=== PATIENT | female | born 1945 | race Caucasian/White ===

== ENCOUNTER 2019-08-29 10:47 | Inpatient (IN) | payer OTHER ==
[~2019-08-29] VITALS: Ht 167.6 cm; Wt 56.2 kg
[2019-08-29 10:50] VITALS: BP 101/70
[2019-08-29] MEDS ORDERED: OMEPRAZOLE40 MG PO (10:55)
[2019-08-29] MEDS ORDERED: ARIMIDEX1 MG PO (10:56)
[2019-08-29] MEDS ORDERED: LOPERAMIDE 2 MG2 M1 PO (10:56)
[2019-08-29] MEDS ORDERED: ALEVE220 M1 PO (10:57)
[2019-08-29 11:15] LABS: HEMATOCRIT 44.7 % (37.0-47.0); HEMOGLOBIN 15.8 gm/dL (12.0-15.0); MCH 33.5 pg (26.0-34.0); MCHC 35.2 g/dL (28.0-37.0); MCV 95.2 fL (80.0-100.0); MPV 7.9 fl. (7.2-11.1); NUCLEATED RBCS 0 /100WBC; PLATELET COUNT* 442 thou/uL (150-400); RDW-CV 13.9 % (10.5-14.5); WBC 11.3 thou/uL (4.0-11.0)
[2019-08-29 11:25] LABS: CALCIUM 7.7 mg/dL (8.5-10.1); CREATININE 1.8 mg/dL (0.6-1.3); POTASSIUM 4.5 mmol/L (3.5-5.1)
[2019-08-29 11:32] LABS: ALBUMIN 2.9 g/dL (3.4-5.0); TOTAL BILIRUBIN 0.6 mg/dL (<0.1-1.0); TOTAL PROTEIN 6.5 g/dL (6.4-8.2)
[2019-08-29 11:48] LABS: ABSOLUTE LYMPHOCYTES 0.6 thou/uL (0.8-5.3); ABSOLUTE MONOCYTES 0.7 thou/uL (0.0-1.2); ABSOLUTE NEUTROPHILS 10.1 thou/uL (1.6-8.1); PLATELET ESTIMATE ADEQUATE
[2019-08-29 12:05] LABS: URINE BLOOD NEGATIVE (Negative); URINE CLARITY CLEAR; URINE COLOR YELLOW; URINE GLUCOSE-RANDOM NEGATIVE (Negative); URINE KETONES NEGATIVE (Negative); URINE LEUKOCYTES-REFLEX NEGATIVE (Negative); URINE NITRITE-REFLEX NEGATIVE (Negative); URINE PROTEIN NEGATIVE (Negative); URINE SPECIFIC GRAVITY >= 1.030 (1.005-1.030)
[2019-08-29 12:08] LABS: ICTOTEST (BILI CONFIRMATORY) Negative (Negative); URINE BILIRUBIN 1+ (Negative)
[2019-08-29 16:07] VITALS: BP 100/63
[2019-08-29 17:47] VITALS: BP 108/65
[2019-08-29 20:00] VITALS: BP 100/61
[2019-08-29 21:22] LABS: CREATININE 1.8 mg/dL (0.6-1.3); POTASSIUM 4.2 mmol/L (3.5-5.1)
[2019-08-30 00:12] VITALS: BP 103/60
[2019-08-30 04:02] LABS: HEMOGLOBIN 15.1 gm/dL (12.0-15.0); MCH 33.4 pg (26.0-34.0); MCV 95.3 fL (80.0-100.0); RBC 4.51 mil/uL (4.20-5.00); RDW-CV 14.1 % (10.5-14.5); WBC 10.9 thou/uL (4.0-11.0)
[2019-08-30 04:20] LABS: ALBUMIN 2.6 g/dL (3.4-5.0); CALCIUM 6.8 mg/dL (8.5-10.1); CREATININE 1.7 mg/dL (0.6-1.3); MAGNESIUM 1.5 mg/dL (1.8-2.4); POTASSIUM 3.8 mmol/L (3.5-5.1); TOTAL BILIRUBIN 0.6 mg/dL (<0.1-1.0); TOTAL PROTEIN 5.7 g/dL (6.4-8.2)
[2019-08-30 04:28] VITALS: BP 91/56
--- NOTE | 2019-08-30 05:42 | NUR ---
ASSUMED CARE OF PT AFTER REPORT AT 1930. PT A&OX4. VSS. PHYSICAL ASSESSMENT COMPLETED AND CHARTED. PT ON RA. PT TRACING SR/ST ON TELE. PT UP WITH 1 ASSIST. MAINTAINED NGT TO LOW-INERMITTENT SUCTION. MAINTAINED ON NPO. PT DENIES ANY PAIN. FALL PRECAUTIONS IN PLACE. CALL LIGHT WITHIN REACH.
[2019-08-30 08:00] VITALS: BP 93/57
--- NOTE | 2019-08-30 09:23 | EKG ---
[place] [address] ELECTROCARDIOGRAM REPORT Name: JENAKAMILLAFINESSE Room: [address] ADM IN [facility].#: [id number] Admission: 08/29/19 Attend Phys: Yolanda Locke, Discharge: Date of : 41 Date of Service: 08/29/19 1109 Report #: [id number] THIS REPORT FOR: //name// [facility] ED Test Date: 2019-08-29 Test Time: 11:09:40 Pat Name: FINESSE CONNER Department: Room: [facility] Gender: F Water Server: WILL : 1945 Requested By: Gisel Harrison Order Number: [id number] MD: Giovanny Duran Measurements Intervals [place] Rate: 113 P: 51 MD: 107 QRS: 40 QRSD: 84 T: 51 QT: 318 QTc: 436 Interpretive Statements Sinus tachycardia Probable left atrial enlargement No previous ECG available for comparison Electronically Signed On 08-30-2019 9:22:44 CDT by Giovanny Duran [email or web address] <ELECTRONICALLY SIGNED> By: Giovanny Duran MD, FAC 08/30/19 0922 1109 1109 Giovanny Duran MD, [facility] /EPI
--- NOTE | 2019-08-30 11:43 | NUR ---
ASSUMED PT CARE AT 0730. PT RESTING IN BED WITH NG TUBE TO RT. NARE HOOKED UP TO INTERMITTENT SUCTION. BROWN/RED FLUID NOTED IN SUCTION CANNISTER. PT HAS NO C/O PAIN OR NAUSEA. PT IS SCHEDULED FOR SMALL BOWEL FOLLOW THROUGH, DID DRINK SOME JUICE BEFORE PROCEDURE. DIET UPDATED TO NPO. TRACING ST ON THE WEIGHT LOSS CENTRE MANAGER, 95% ON RA, PT HAD ULTRASOUND OF ABD THIS MORNING, REFER TO RESULTS. PT GOAL FOR TODAY IS REMAIN FREE FROM PAIN AND NAUSEA AND REPLACE MAGNESIUM AND GI AND SURGERY CONSULT IN PLACE. AM ASSESSMENT CHARTED, MEDS PER MAR. PT REPOSITIONS SELF, HOURLY ROUNDING OBSERVED, BED IN LOW POSITION, CALL LIGHT W/IN REACH, WILL CONTINUE POC.
--- NOTE | 2019-08-30 13:54 | NUR ---
CM spoke with Pt's dtr via phone, Pt out of the room in surgery. Pt normally resides at home alone, A&O. Per dtr, Pt had been independent prior to a SBO in March, per dtr GI assumed that everything has resolved but Pt continued to get progressively weaker through the months. Pt had a colonoscopy in July, after that Pt was extremely weak, dtr had to start assisting with bathing/grooming and cleaning. Pt has a wc but does not use it. No hx of HH or SNF. Goal is home at [place], but dtr understands that Pt may need more at [facility]. CM following.
[2019-08-30 17:20] VITALS: BP 113/61
--- NOTE | 2019-08-30 18:04 | NUR ---
PT BACK FROM PACU AT APPROXIMATELY 1720. REPORT RECEIVED FROM JOVANA BOWDEN. PT HAD EXPLORATORY LAPAROTOMY. DRESSING NOTED TO MID ABDOMEN- COVERED AND ABDOMINAL BINDER IN PLACE. NGT REMAINS TO R NARE- BROWN RED LIQUID IN CANNISTER. CADENA CATHETER INSERTED IN PACU WITH CLEAR YELLOW URINE. LEFT CHEST SUBCLAVIAN CENTRAL LINE INSTERTED- LR CURRENTLY INFUSING AT 40ML/HR. PT ON 3L NC SAT 96%. PT DENIES ANY PAIN OR SHORTNESS OF BREATH AT THIS TIME. PT REMAINS NPO, ICE CHIPS SPARINGLY. PT PROGRESSING TOWARDS GOALS. MEDICATIONS PER MAR. PT REPOSITIONS SELF. HOURLY ROUNDING OBSERVED. BED IN LOW POSITION. BED ALARM IN PLACE. CALL LIGHT WITHIN REACH. WILL CONTINUE PLAN OF CARE.
[2019-08-31] VITALS (7 sets, daily range): BP systolic 93–115; BP diastolic 50–76
[2019-08-31 04:34] LABS: HEMATOCRIT 42.5 % (37.0-47.0); HEMOGLOBIN 14.3 gm/dL (12.0-15.0); MCH 32.7 pg (26.0-34.0); MCHC 33.7 g/dL (28.0-37.0); MPV 8.5 fl. (7.2-11.1); RBC 4.38 mil/uL (4.20-5.00); RDW-CV 14.1 % (10.5-14.5)
[2019-08-31 04:45] LABS: ALBUMIN 2.2 g/dL (3.4-5.0); CALCIUM 7.3 mg/dL (8.5-10.1); CREATININE 1.4 mg/dL (0.6-1.3); MAGNESIUM 2.4 mg/dL (1.8-2.4); PHOSPHORUS* 4.8 mg/dL (2.5-4.9); TOTAL BILIRUBIN 0.4 mg/dL (<0.1-1.0); TOTAL PROTEIN 5.2 g/dL (6.4-8.2)
--- NOTE | 2019-08-31 05:15 | NUR ---
PATIENT RESTED WELL ALL EVENING. NG AT LOW INTERMITTENT SUCTION, CADENA GOOD OUTPUT. SHE DID NOT GET UP ALL SHIFT. A&O X4, 3L O2. FLUIDS DISCONTINUED. NPO ALL SHIFT. ABDOMINAL BINDER IN PLACE, MEPALEX INTACT ON ABDOMEN SURGICAL SITE. NO REPORTS OF PAIN OR NAUSEA THIS SHIFT. OFFERED ICE PACK. PLAN IS TO CONTINUE NG TUBE, FOLLOW LABS/XRAYS. WILL CONTINUE TO MONITOR.
[2019-08-31 07:07] LABS: HEPATITIS B SURFACE AG Negative (Negative)
--- NOTE | 2019-08-31 11:03 | NUR ---
ASSUMED CARE OF PT AT 0730. PT IS RESTING IN BED AND HAS NO C/O PAIN OR NAUSEA. POTASSIUM BEING REPLACED PER ELECTROLYTE PROTOCOL. IV FLUIDS STARTED PER SURGERY. SUPPOSITORY WAS ALSO GIVEN PT HAS NOT HAD A BM IN T-2. PT BOWEL SOUNDS ARE HYPOACTIVE, DIET IS NPO WITH ICE CHIPS GIVEN SPARINGLY. TRACING ST ON HEART MONITOR, 94% ON 3L NC. PT GOAL IS TO MAINTAIN NO NAUSEA AND PAIN, HAVE A BM TODAY AND TO GET OUT OF BED AND WORK WITH THERAPY. AM ASSESSMENT CHARTED, HOURLY ROUNDING OBSERVED, FALL PRECAUTIONS IN PLACE, WILL CONTINUE POC.
--- NOTE | 2019-08-31 13:46 | NUR ---
WOUND NURSE: PATIENT SEEN TO ADDRESS WOUNDS IN SACROCOCCYGEAL AREA: COCCYX WOUND IS FULL THICKNESS MEASURING 1.4 X 0.8 X 0.3 CM, CONTAINS DARK RED, NONGRANULATING TISSUE IN THE WOUND BED. LEFT SACRUM CONTAINS 2 OPENINGS, IS PARTIAL THICKNESS AND MEASURING 1.5 X 0.5 X 0.2 CM. THESE CONTAIN PINK, NONGRANULATING TISSUE IN THE WOUND BED AND IS 50% SKIN IN THE MEASURED AREA. THERE IS SMALL AMOUNT OF SEROUS DRAINAGE NOTED FROM EACH OPEN WOUND. THERE IS A SUSPECTED DEEP TISSUE INJURY NOTED ON THE RIGHT SACRUM MEASURING 0.5 X 1.5 CM. THERE IS INTACT BROWNISH HYPERPIGMENTATION IN THE PERINEAL AREA. WOUNDS CLEANSED WITH SOAP AND WATER, RINSED, PATTED DRY. APPLIED SKIN PREP TO PERIWOUND, COVERED WITH AQUACEL AG UNDER EXUDERM UNDER SURESITE DRESSING. FELIX INSTUCTED ON IMPORTANCE OF FREQUENT SIDE TO SIDE REPOSITIONIN. STATES SHE UNDERSTANDS.
--- NOTE | 2019-08-31 17:31 | NUR ---
PT PROGRESSING TOWARDS GOALS, DENIES ANY NAUSEA OR PAIN THROUGHOUT SHIFT. PT WORKED WITH PT AND OT TODAY AND IS UP TO RECLINER, TOLERATED WELL. PT ON 3RD BAG OF POTASSIUM PER ELECTROLYTE PROTOCOL. PT IS NOW PASSING FLATUS AND HAD 225 GREEN/BROWN FLUID OUT FROM NGT. CONTINUES TO BE ON 3L NC AND TRACE SR/ST ON SANDFILL OPERATOR SURFACE. MEDS PER AUG, PT REPOSITIONED Q2H, HOURLY ROUNDING OBSERVED, BED IN LOW POSITION, CALL LIGHT W/IN REACH, WILL CONTINUE POC.
--- NOTE | 2019-08-31 21:59 | OP ---
[address] [address] OPERATIVE REPORT Name: FINESSE CONNER Room: [address] IN M.R.#: [id number] Admission: 08/29/19 Attend Phys: Yolanda Locke MD Discharge: Date of : 41 Report #: [id number] THIS REPORT FOR: //name// cc: GRISEL Patten family physician/PCP GRISEL - [facility] family physician/PCP ~ THIS REPORT FOR: //name// CC: [facility] physician/PCP Yolanda Locke DICTATED BY: Humberto Miranda DO DATE OF SERVICE: 08/30/2019 PREOPERATIVE DIAGNOSIS: Small-bowel obstruction. POSTOPERATIVE DIAGNOSIS: Small-bowel obstruction secondary to stricture. SURGEON: Jarrod Murphy DO. TRAVEL AGENCY MANAGER: Humberto Miranda, PGY5 OPERATION PERFORMED: 1. Exploratory laparotomy. 2. Release of small-bowel obstruction and small-bowel resection with primary anastomosis. ANESTHESIA: General and TAP blocks. ESTIMATED BLOOD LOSS: 5 mL. SPECIMENS REMOVED: Small bowel segment. COMPLICATIONS: None. FINDINGS: There is an obvious stricture in the mid small bowel with grossly distended proximal loops all the way noted to the ligament of Treitz. There was a decompressed colon. There was a large abdominal aortic aneurysm that was seen in the left upper quadrant near the ligament of Treitz. DESCRIPTION OF PROCEDURE: After appropriate consents were obtained, the patient was taken to the operating room, laid in supine position. She had SCDs placed on bilateral lower extremities and safety strap placed across her lap. She had all lines placed by Anesthesia. The anesthesiologist placed a left subclavian central line prior to starting the procedure, the nurse placed a Ybarra catheter. The patient was sedated and intubated by Anesthesia [place] [address] OPERATIVE REPORT Name: FINESSE CONNER Room: [address] IN M.R.#: [id number] Admission: 08/29/19 Attend Phys: Yolanda Locke MD Discharge: Date of : 41 Report #: [id number] was secured to the bed and both arms placed out. She had her abdomen exposed, prepped and draped in a standard sterile fashion. A timeout was performed to correctly identify the patient and procedure. She was given perioperative antibiotics at this time. We started by making a midline incision using #10 blade scalpel. This was carried from the infraumbilical region to just above the umbilicus. We carried this down again through the subcutaneous tissue using electrocautery. We the subcutaneous tissue bluntly and then able to encounter the anterior abdominal wall fascia. Once the fascia was encountered, it was incised using electrocautery and was grasped with 2 Greyson clamps, then entered the patient's peritoneal cavity. I grabbed the peritoneum between 2 Lorin clamps and then incising it sharply with Metzenbaum scissors, we entered the patient's abdomen using a finger and opened our fascial incision through the length of our skin incision. We were very careful not to injure any other structures underlying the fascia. We were able to remove the small bowel from the patient's abdomen and in doing so, there was a loop down in the pelvis that was removed and there was an obvious stricture near this region. This appeared to be an area in the mid small bowel with notable decompressed distal loops and significantly dilated proximal loops. The proximal loop ran all the way to the ligament of Treitz. Near the ligament of Treitz is a very large abdominal aortic aneurysm that was seen and palpated. We ran the entire small bowel twice all the way from the ligament of Treitz to ileocecal valve and again we noted only one obvious abnormality that was causing her obstruction and thid was the stricture in the mid small bowel. There did not appear to be any compromised blood flow and everything appeared to be healthy. We elected to resect a large segment just distal to the stricture and more proximally to an area that felt less edematous and appeared to be somewhat smaller. This was performed by using a hemostat to bluntly enter the mesentery and then, using 80-mm LAMONT stapler, we transected the bowel distally and then we used a LigaSure impact device in order to take the mesentery all the way up to our point of resection. We, at this point, made a small enterotomy in the proximal segment just distal to where we were going to transect the bowel. This enterotomy was used to decompress the proximal and distal small bowel. We suctioned approximately 3 liters of fluid and were able to decompress the small bowel proximally into the stomach and the nurse coatings inspector recorded having almost 2 liters of fluid return through the NG tube. We did palpate the NG tube, which was well within the stomach. Once we were satisfied with decompression of her small bowel, we elected to transect it. We transected using the same method and used an 80-mm LAMONT stapler. We passed off the bowel to be sent to pathology for further review. The segment that we transected appeared to be pink and healthy and we elected to reapproximate these 2 segments using hsbi-ra-huhi anastomosis. We grasped each corner of the antimesenteric border of the small bowel using an Allis clamp. Using curved Ferraro scissors, we took off each corner and then used the 80-mm LAMONT stapler to make a common [address] [address] OPERATIVE REPORT Name: FINESSE CONNER Room: [address] IN M.R.#: [id number] Admission: 08/29/19 Attend Phys: Yolanda Locke MD Discharge: Date of : 41 Report #: [id number] enterotomy. We used a TA to close our common enterotomy at this point. We then placed a single silk crotch suture to relieve tension on our anastomosis. We did some Lembert sutures over staple suture line in order to protect it. We closed the mesenteric defect using a 3-0 Vicryl stitch. There were no obvious holes within the mesentery at this point. The small bowels ran once again and did not identify any obvious abnormalities. We did a full inspection of the patient's intra-abdominal organs and again did not see any obvious gross abnormalities. She did have a large abdominal aortic aneurysm that was seen once again by the ligament of Treitz. It appeared she had a small cyst on her right ovary. Her colon was nicely decompressed. There was no significant amount of spillage during the procedure and there was a minimal amount of blood loss. We elected at this point to return to the patient's small bowel to the abdominal cavity. There was plenty of room at this point given the amount of distention that she had prior to starting the surgery. We elected to close the fascia using 2 separate looped PDS sutures. We started inferiorly and placed a fish retractor to protect the bowel underneath this. We did this until we ran past the umbilicus and then started superiorly and ran this down until we met the 2 in the middle. We also placed 0 Vicryl stitches within the fascia using interrupted sutures as an added security measure given the patient's poor nutrition and a history of tobacco abuse. Once we were pleased with our fascial repair and it appeared to reapproximate nicely, we tied these 2 looped PDS sutures down and tacked our knot down to the fascia using a 3-0 Vicryl stitch. The skin was closed using interrupted brian. The patient's abdomen was cleaned and dried adequately and we placed a Mepilex Ag dressing. She was allowed to awaken and subsequently extubated in the OR. We left the NG tube in place until the patient should have return of bowel function. All counts were correct x [address] Murphy was present and scrubbed for the entirety of procedure. <ELECTRONICALLY SIGNED> By: Jarrod Murphy DO 08/31/19 2159 1522 [id number] Murphy DO /nt
[2019-09-01 02:31] LABS: ABSOLUTE BASOPHILS 0.1 thou/uL (0.0-0.2); ABSOLUTE LYMPHOCYTES 0.7 thou/uL (0.8-5.3); ABSOLUTE MONOCYTES 0.5 thou/uL (0.0-1.2); ABSOLUTE NEUTROPHILS 14.3 thou/uL (1.6-8.1); BASOPHILS 0.5 %; EOSINOPHILS 0.1 %; HEMATOCRIT 40.1 % (37.0-47.0); HEMOGLOBIN 13.5 gm/dL (12.0-15.0); LYMPHOCYTES 4.3 %; MCHC 33.6 g/dL (28.0-37.0); MCV 98.1 fL (80.0-100.0); MONOCYTES 3.1 %; MPV 8.5 fl. (7.2-11.1); NUCLEATED RBCS 0 /100WBC; PLATELET COUNT* 298 thou/uL (150-400); RBC 4.09 mil/uL (4.20-5.00); RDW-CV 14.3 % (10.5-14.5); WBC 15.6 thou/uL (4.0-11.0)
[2019-09-01 02:40] LABS: ALBUMIN 1.8 g/dL (3.4-5.0); CALCIUM 6.9 mg/dL (8.5-10.1); POTASSIUM 3.4 mmol/L (3.5-5.1); TOTAL BILIRUBIN 0.3 mg/dL (<0.1-1.0); TOTAL PROTEIN 4.8 g/dL (6.4-8.2)
[2019-09-01 03:45] VITALS: BP 91/55
[2019-09-01 08:00] VITALS: BP 98/59
[2019-09-01 12:37] VITALS: BP 87/54
--- NOTE | 2019-09-01 15:54 | NUR ---
RESUMED CARE AT APPROXIMATELY 1530. REMAINS A&OX4. RESPIRATIONS EVEN AND UNLABORED ON O2 AT 2L VIA NASAL CANNULA. DENIES PAIN. NG INTACT TO RIGHT NARE, CLAMPED. ABDOMINAL BINDER INTACT TO ABDOMEN. DRESSING TO MIDLINE ABDOMEN CDI. CALL MUHAMMAD WITHIN REACH. BED ALARM SET ON EXITING MODE FOR SAFETY. NSG WILL CONTINUE TO ASSESS.
--- NOTE | 2019-09-01 17:37 | NUR ---
UP TO BSC TO URINATE WITHOUT SUCCESS. WILL CONTINUE TO ASSESS.
--- NOTE | 2019-09-01 18:19 | NUR ---
REMAINS A&OX4. RESPIRATIONS REMAIN EVEN AND UNLABORED ON ROOM AIR. O2 SAT 92%. DENIES PAIN. TOLERATING CLEAR LIQUIDS. UP TO BSC WITH ASSIST. BED ALARM REMAINS SET ON EXITING MODE FOR SAFETY. CALL MUHAMMAD AND PERSONAL ITEMS IN REACH. NSG WILL CONTINUE TO ASSESS.
--- NOTE | 2019-09-01 19:07 | PATH ---
[address] [address] PATHOLOGY RPT PROCEDURE Name: GIN CONNER Room: [address] IN M.R.#: [id number] Admission: 08/29/19 Date of : 41 Discharge: Report #: [id number] Path Case #: [id number] LCA Accession Number: [id number] . 01 Material submitted: . small bowel - SMALL BOWEL . 01 Clinical history: . SBO . 02 Diagnosis: Small bowel resection: - Segment of benign small intestine with suggestion of obstruction including flattening of mucosa and vascular congestion. (PHAN:chantelle; 09/01/2019) MBR 09/01/2019 1543 Local . 02 Electronically signed: . Pipo Navarro MD, Pathologist NPI- [id number] . 01 Gross description: . The specimen is received in formalin, labeled "Gin Conner, small bowel resection" and consists of an unoriented segment of small bowel measuring approximately 99.0 cm in length and up to 5.8 cm in diameter. Both margins are closed with brian. There is mesenteric fat measuring up to 2.9 cm. The serosa is pink-arevalo smooth shiny. Opening reveals a dilated lumen filled with brown fecal material. The mucosa is red-pink to walker arevalo showing reduced folds and a flattened mucosa. No masses or lesions are identified. There are no adhesions or areas of stricture identified. Annual Greenhouse Manager sections are submitted as follows: . A1-A2: Margins A3: 10 and 20 cm A4: 30 and 40 cm A5: 50 and 60 cm A6: 70, 80, and 90 cm (SDY; 08/31/2019) SYU/SYU 09/01/2019 1542 Local . 02 Pathologist provided ICD-10: K56.609 . 02 CPT . 369794 Specimen Comment: A courtesy copy of this report has been sent to [phone], [phone] Specimen Comment: [address] [place] [address] PATHOLOGY RPT PROCEDURE Name: GIN CONNER Room: [address] IN M.R.#: [id number] Admission: 08/29/19 Date of : 41 Discharge: Report #: [id number] Path Case #: [id number] Specimen Comment: Report sent to / DR ASTORGA Performed at: 01 [facility] [address] [facility] [address], [place], [place] [id number] MD Fermin Lyle MD Phone: [phone] Performed at: 02 [facility] [address], [place], [place] [id number] MD Pipo Navarro MD Phone: [phone]
[2019-09-01 19:20] VITALS: BP 85/49
[2019-09-02 04:57] LABS: HEMATOCRIT 35.9 % (37.0-47.0); HEMOGLOBIN 12.5 gm/dL (12.0-15.0); MCH 33.9 pg (26.0-34.0); MCHC 34.8 g/dL (28.0-37.0); MCV 97.3 fL (80.0-100.0); MPV 7.9 fl. (7.2-11.1); RBC 3.69 mil/uL (4.20-5.00); WBC 9.6 thou/uL (4.0-11.0)
[2019-09-02 05:22] LABS: ALBUMIN 1.6 g/dL (3.4-5.0); CALCIUM 7.3 mg/dL (8.5-10.1); CREATININE 0.6 mg/dL (0.6-1.3); MAGNESIUM 1.3 mg/dL (1.8-2.4); POTASSIUM 3.4 mmol/L (3.5-5.1); TOTAL BILIRUBIN 0.3 mg/dL (<0.1-1.0); TOTAL PROTEIN 4.3 g/dL (6.4-8.2)
--- NOTE | 2019-09-02 05:45 | NUR ---
PT ALERT AND ORIENTED X4. VSS ON RA. MEDS GIVEN PER EMAR. SIMETHICONE GIVEN FOR ABS GAS. PT SLEPT WELL THIS SHIFT. ABD DRESSING C/D/I. ABD BINDER IN PLACE. DRESSING TO SACRAL AREA C/D/I. PT UP TO BSC. PT VOIDED 200ML THIS SHIFT. PT BLADDER SCANNED AT 2200 FOR LAST OF VOIDING SINCE REMOVAL OF CADENA. PT HAD ABOUT 69ML. Q2 TURN. FALL PRECAUTION IN PLACE. CALL LIGHT WITHIN REACH. WILL CONTINUE TO MONITOR.
[2019-09-02 07:45] VITALS: BP 86/50
--- NOTE | 2019-09-02 17:52 | NUR ---
PT A&OX4 VSS. PT DENIES PAIN. SURGERY DC'D PT NG TUBE. DIET ADVANCED TO FULL LIQUIDS. PT HAS TRIPLE LUMEN TO UPPER L CHEST, DRESSING C/D/I. PT REMIANS CONTINENT OF B/B ONE EPISODE OF BOWEL INCONINENCE D/T URGENCY. PT HAD ONE LG LOOSE STOOL FOLLOWING MIRALAX. PT IS ASSIST X1 W/WALKER. PT UP TO RECLINER THIS AFTERNOON WITH THERAPY. L ARM LIMB ALERT, BRACELET IN PLACE. WOUND DRESSING TO COCCYX C/D/I. PT IS Q2H TURN FOR SKIN INTEGRITY. IV FLUIDS DC'D. POTASSIUM REPLACED THIS AM AT 0600 BY JAVID SMITH, DR MONTES AWARE. ABD MIDLINE DRESSING C/D/I. BINDER IN PLACE. NO EPISODES OF VOMITING THIS SHIFT. PT RESTS IN ROOM WITH CALL LIGHT. WILL CONTINUE TO MONITOR.
[2019-09-02 21:00] VITALS: BP 101/66
[2019-09-03 00:12] VITALS: BP 91/58
[2019-09-03 05:09] LABS: HEMATOCRIT 35.1 % (37.0-47.0); HEMOGLOBIN 12.2 gm/dL (12.0-15.0); MCHC 34.8 g/dL (28.0-37.0); MCV 97.8 fL (80.0-100.0); MPV 8.6 fl. (7.2-11.1); RBC 3.59 mil/uL (4.20-5.00); WBC 7.4 thou/uL (4.0-11.0)
[2019-09-03 05:21] LABS: CREATININE 0.5 mg/dL (0.6-1.3); MAGNESIUM 1.2 mg/dL (1.8-2.4); POTASSIUM 3.6 mmol/L (3.5-5.1)
--- NOTE | 2019-09-03 06:49 | NUR ---
Transfer from 3rd floor at start of shift. She had bowel sounds x 4, dressing to midline incision and abdominal binder on. She hasn't had much appetite. She has a stage 2 to sacrum with dressing on. She is up with min assist to the bedside commode. She has low magnesium and phosphorus this am,electrolyte protocol followed. She has slept intermittenly.
[2019-09-03 08:30] VITALS: BP 90/55
[2019-09-03 15:56] VITALS: BP 94/52
--- NOTE | 2019-09-03 16:05 | NUR ---
ASSUMED CARE OF PT APPROX 0730. REASSESSMENT COMPLETED CHARTED. MEDICATIONS GIVEN CHARTED. PT UP TO BEDSIDE CAMODE MULTIPLE TIMES THIS SHIFT. SAFTEY PRECAUTIONS UTILIZED. HOURLY ROUNDING. BED IN LOW POSITION AND CALL LIGHT WITHIN REACH.
[2019-09-03 20:00] VITALS: BP 109/67
[2019-09-04] VITALS: BP 104/60
[2019-09-04 04:33] LABS: CALCIUM 8.1 mg/dL (8.5-10.1); CREATININE 0.6 mg/dL (0.6-1.3); MAGNESIUM 1.2 mg/dL (1.8-2.4); PHOSPHORUS* 1.9 mg/dL (2.5-4.9); POTASSIUM 3.5 mmol/L (3.5-5.1)
--- NOTE | 2019-09-04 06:09 | NUR ---
ASSUMED CARE OF PT AFTER REPORT AT 1930. PT A&OX4. VSS. PHYSICAL ASSESSMENT COMPLETED AND CHARTED. PT ON RA. PT ON MEDSURG STATUS. PT WITH SORE ON SACRAL & BILATERAL BUTTOCKS-CLEANED, PAT DRY, PHOTOGRAPH TAKEN, APPLIED DRESSING. PT COMPLAINED OF MIDLINE INCISION PAIN WHEN TURNED-MED GIVEN PER MAR. FALL PREACUTIONS IN PLACE. CALL LIGHT WITHIN REACH.
[2019-09-04 08:15] VITALS: BP 116/78
[2019-09-04 12:26] VITALS: BP 88/58
[2019-09-04 14:48] VITALS: BP 88/58
--- NOTE | 2019-09-04 15:09 | NUR ---
SAMMY spoke with , anticipate dc to home tomorrow with . CM contacted [facility] , faxed initial referral, they will review and let Cm know if they can accept. SAMMY contacted Pt's PCP office, [facility] in [place], Pt sees Sally Bhagat NP, who works under Dr Sincere Rahman, faxed clinical info and scheduled f/u appt for 09/11/19 at 1pm, appt placed in dc summary.
[2019-09-04 17:05] VITALS: BP 85/48
--- NOTE | 2019-09-04 18:39 | NUR ---
REMAINS A&OX3. RESPIRATIONS EVEN AND UNLABORED ON ROOM AIR. DENIES PAIN. UP TO BSC WITH SBA. DRESSING TO MIDLINE ABDOMINAL INCISION REMAINS CDI. ABDOMINAL BINDER TOLERATED. ENCOURAGED TO USE I.S. DRESSING TO SACRAL AREA CDI. TOLERATING REGULAR DIET. CM ASSISTING WITH DISCHARGE. UP WITH THERAPY TOWARD DISCHARGE GOALS. BED AND CHAIR ALARMS SET FOR SAFETY. CALL MUHAMMAD AND PERSONAL ITEMS WITHIN REACH. NSG WILL CONTINUE TO ASSESS.
[2019-09-04 20:00] VITALS: BP 87/47
[2019-09-05 00:16] VITALS: BP 94/61
--- NOTE | 2019-09-05 04:36 | NUR ---
ASSUMED PATIENT CARE AT 1900. ASSESSMENT COMPLETED CHARTED. PATIENT IS MED-SURG. HOURLY ROUNDING IN PLACE FOR PATIENT SAFETY. CLWR.
[2019-09-05 08:30] VITALS: BP 85/61
[2019-09-05 10:37] VITALS: BP 88/58
[2019-09-05] MEDS ORDERED: SENOKOT-S TABL1 EACH PO (11:19)
[2019-09-05] MEDS ORDERED: SIMETHICON CHEW80 M1 PO (11:19)
[2019-09-05] MEDS ORDERED: OXYCODONE HCL 55 MG PO (11:19)
[2019-09-05 11:39] VITALS: BP 88/58
[2019-09-05] MEDS ORDERED: ENOXAPARIN30 MG/0.1 SUBQ (11:55)
[2019-09-05 12:44] VITALS: BP 93/48
--- NOTE | 2019-09-05 15:13 | NUR ---
Pt discharging to home today. Faxed orders to [facility] and [facility] in [place].
--- NOTE | 2019-09-05 16:51 | NUR ---
I ASSUMED CARE OF THE PATIENT AT 0700. SHE IS ALERT AND ORIENTED X4 AND IS UP WITH ASSIST OF 1. BED IS IN THE LOW LOCKED POSITION AND CALL LIGHT IS IN REACH. HOURLY ROUNDING IS COMPLETED AND PATIENT NEEDS ARE MET. PAIN IS DENIED. DANNY D/C'D CENTERAL LINE PRIOR TO DISCHARGE. MEDS CALLED IN AND SCRIPT GIVEN FOR NARCOTICS. DAUGHTER AND CONTACTED AND PATIENT PICKED UP AT 1600 TO HOME WITH [facility]. PHARMACY CONTACTED. GENERAL SURGERY DOESN'T WANT PATIENT TO BE ON LOVENOX, BUT SHE UNDERSTANDS TO SCHEDULE A FOLLOW UP IN 10-14 DAYS. TRAVIS ROJAS SENT HOME ON PATIENT WITH WAFFLE CUSHION AND EDUCATION TO HAVE A POSITION CHANGE EVERY 2 HOURS TO AVOID PRESSURE ULCERS. SHE IS MED/SURG STATUS.
== END 2019-09-05 16:07 | disposition home health service (06) | DRG 329 ==
LOC: M.ERS 10:47 → M.TBA-ER 12:34 → M.2W 12:34 → M.3W 09-01 15:12 → M.2W 09-02 19:45
PROVIDERS: Internal Medicine; Nurse Practitioner Family; Surgery; ADMIT Internal Medicine
PROC: 0D9670Z Drainage of Stomach with Drainage Device, Via Natural or Artificial Opening (ICD-10-PCS; principal; 2019-08-29)
PROC: 0DT80ZZ Resection of Small Intestine, Open Approach (ICD-10-PCS; 2019-08-30)
DX: K56.609 Unspecified intestinal obstruction, unspecified as to partial versus complete obstruction (principal); E43 Unspecified severe protein-calorie malnutrition; R65.11 Systemic inflammatory response syndrome (SIRS) of non-infectious origin with acute organ dysfunction; E87.1 Hypo-osmolality and hyponatremia; N17.9 Acute kidney failure, unspecified; N18.4 Chronic kidney disease, stage 4 (severe); E86.0 Dehydration; I71.4 Abdominal aortic aneurysm, without rupture; E87.8 Other disorders of electrolyte and fluid balance, not elsewhere classified; E86.1 Hypovolemia; N83.209 Unspecified ovarian cyst, unspecified side; K21.9 Gastro-esophageal reflux disease without esophagitis; E87.6 Hypokalemia; Z85.3 Personal history of malignant neoplasm of breast; Z90.13 Acquired absence of bilateral breasts and nipples; Z79.899 Other long term (current) drug therapy; Z88.2 Allergy status to sulfonamides; Z72.0 Tobacco use; Z68.20 Body mass index [BMI] 20.0-20.9, adult